=== PATIENT | male | born 1985 | race American Indian/Alaskan Native ===

== ENCOUNTER 2021-08-22 00:01 | Emergency (ER) | payer SELFPAY ==
[2021-08-22 00:42] VITALS: BP 148/95
== END 2021-08-25 00:44 | disposition home or self-care (01) ==
LOC: EDBD → ED 00:01
DX: R10.9 Unspecified abdominal pain (principal); Z53.21 Procedure and treatment not carried out due to patient leaving prior to being seen by health care provider